=== PATIENT | female | born 1990 | race Caucasian/White ===

== ENCOUNTER 2017-05-08 14:15 | Emergency (ER) | payer OTHER ==
[~2017-05-08] VITALS: Ht 154.9 cm; Wt 86.2 kg
[~2017-05-08 14:15] MED LIST: ALLEGRA-D 12 H1 EAC1 PO; BIRTH CONTROL; CYMBALTA60 MG PO; LEVOTHYROXIN0.088 MG PO; METFORMIN HCL500 MG PO; NAPROSYN500 MG PO; NORCO 5-325 TA1 EACH PO; TRAMADOL 50 MG50 MG PO; YAZ 28 TABLET1 EACH PO
[2017-05-08] MEDS ORDERED: LUNESTA3 MG PO (14:32)
[2017-05-08] MEDS ORDERED: LEXAPRO20 MG PO (14:32)
[2017-05-08] MEDS ORDERED: NEURONTIN 300300 M1 PO (14:33)
[2017-05-08] MEDS ORDERED: TRAMADOL 50 MG50 MG PO (16:07)
[2017-05-08 16:27] VITALS: BP 117/90
== END 2017-05-08 16:27 | disposition home or self-care (01) ==
LOC: M.ERS 14:15
DX: M25.531 Pain in right wrist (principal); M53.3 Sacrococcygeal disorders, not elsewhere classified; E11.9 Type 2 diabetes mellitus without complications; E03.9 Hypothyroidism, unspecified; Z88.6 Allergy status to analgesic agent; Z88.1 Allergy status to other antibiotic agents

== ENCOUNTER 2017-06-10 09:03 | Emergency (ER) | payer OTHER ==
[~2017-06-10] VITALS: Ht 154.9 cm; Wt 86.2 kg
[~2017-06-10 09:03] MED LIST changes: +LEXAPRO20 MG PO; +LUNESTA3 MG PO; +NEURONTIN 300300 M1 PO
[2017-06-10] MEDS ORDERED: AMITRIPTYLINE H25 M2 PO (09:21)
[2017-06-10 09:57] LABS: ABSOLUTE EOSINOPHILS 0.2 thou/uL (0.0-0.7); ABSOLUTE LYMPHOCYTES 3.9 thou/uL (0.8-5.3); ABSOLUTE MONOCYTES 0.4 thou/uL (0.0-1.2); ABSOLUTE NEUTROPHILS 4.2 thou/uL (1.6-8.1); BASOPHILS 0.3 %; EOSINOPHILS 2.1 %; HEMATOCRIT 33.3 % (37.0-47.0); HEMOGLOBIN 11.4 gm/dL (12.0-15.0); LYMPHOCYTES 44.4 %; MCH 31.2 pg (26.0-34.0); MCHC 34.4 g/dL (28.0-37.0); MCV 90.8 fL (80.0-100.0); MONOCYTES 4.6 %; MPV 8.8 fl. (7.2-11.1); NUCLEATED RBCS 0 /100WBC; PLATELET COUNT* 188 thou/uL (150-400); POLYS 48.6 %; RBC 3.67 mil/uL (4.20-5.00); RDW-CV 12.6 % (10.5-14.5); WBC 8.7 thou/uL (4.0-11.0)
[2017-06-10 09:59] LABS: URINE BILIRUBIN NEGATIVE (Negative); URINE BLOOD NEGATIVE (Negative); URINE CLARITY CLEAR; URINE COLOR STRAW; URINE GLUCOSE-RANDOM NEGATIVE (Negative); URINE KETONES NEGATIVE (Negative); URINE LEUKOCYTES-REFLEX TRACE (Negative); URINE NITRITE-REFLEX NEGATIVE (Negative); URINE PROTEIN NEGATIVE (Negative); URINE SPECIFIC GRAVITY <= 1.005 (1.005-1.030); URINE UROBILINOGEN 0.2 E.U./dl (0.2-1.0)
[2017-06-10 10:02] LABS: ANION GAP 10 mmol/L (7-16); BUN 10 mg/dL (7-18); CALCIUM 8.3 mg/dL (8.5-10.1); CHLORIDE 108 mmol/L (98-107); CO2 26 mmol/L (21-32); CREATININE 0.8 mg/dL (0.6-1.3); GLUCOSE 87 mg/dL (70-99); POTASSIUM 3.5 mmol/L (3.5-5.1); SODIUM 144 mmol/L (136-145)
[2017-06-10 10:09] LABS: ALBUMIN 3.2 g/dL (3.4-5.0); ALKALINE PHOSPHATASE 58 U/L (46-116); LIPASE 70 U/L (73-393); SGOT 11 U/L (15-37); SGPT 19 U/L (30-65); TOTAL BILIRUBIN 0.2 mg/dL (<0.1-1.0); TOTAL PROTEIN 6.1 g/dL (6.4-8.2); TROPONIN-I LEVEL <0.06 ng/mL (<0.06)
[2017-06-10 10:09] LABS: SQUAMOUS 4-10 Moderate /LPF (0-3)
[2017-06-10 10:10] LABS: BACTERIA-REFLEX >30 Many /HPF (None Seen); CASTS None Seen /LPF (None Seen); CRYSTALS None Seen /LPF (None Seen); MUCUS 0-3 Light strn/LPF (None Seen); URINE RBC 0-2 Rare /HPF (0-2); URINE WBC-REFLEX 0-5 Rare /HPF (0-5)
[2017-06-10] MEDS ORDERED: HYDROCODON-ACE1 EAC7 PO (12:28)
[2017-06-10 12:37] VITALS: BP 112/80
== END 2017-06-10 12:38 | disposition home or self-care (01) ==
LOC: M.ERS 09:03
PROVIDERS: Emergency Medicine
DX: R10.2 Pelvic and perineal pain (principal); E03.9 Hypothyroidism, unspecified; Z90.89 Acquired absence of other organs; Z88.6 Allergy status to analgesic agent; Z88.1 Allergy status to other antibiotic agents

== ENCOUNTER 2017-06-26 17:45 | Emergency (ER) | payer OTHER ==
[~2017-06-26] VITALS: Ht 154.9 cm; Wt 86.2 kg
[~2017-06-26 17:45] MED LIST changes: +AMITRIPTYLINE H25 M2 PO; +HYDROCODON-ACE1 EAC7 PO
[2017-06-26] MEDS ORDERED: DEPAKOTE ER500 MG PO (18:19)
[2017-06-26 19:00] LABS: ABSOLUTE EOSINOPHILS 0.1 thou/uL (0.0-0.7); ABSOLUTE LYMPHOCYTES 2.1 thou/uL (0.8-5.3); ABSOLUTE MONOCYTES 0.4 thou/uL (0.0-1.2); ABSOLUTE NEUTROPHILS 2.9 thou/uL (1.6-8.1); BASOPHILS 0.7 %; EOSINOPHILS 2.1 %; HEMATOCRIT 37.3 % (37.0-47.0); HEMOGLOBIN 12.7 gm/dL (12.0-15.0); LYMPHOCYTES 37.8 %; MCH 31.3 pg (26.0-34.0); MCHC 33.9 g/dL (28.0-37.0); MCV 92.1 fL (80.0-100.0); MPV 8.8 fl. (7.2-11.1); NUCLEATED RBCS 0 /100WBC; PLATELET COUNT* 188 thou/uL (150-400); POLYS 52.4 %; RBC 4.05 mil/uL (4.20-5.00); RDW-CV 13.3 % (10.5-14.5); WBC 5.5 thou/uL (4.0-11.0)
[2017-06-26 19:08] LABS: CALCIUM 8.9 mg/dL (8.5-10.1); CREATININE 0.8 mg/dL (0.6-1.3); POTASSIUM 4.2 mmol/L (3.5-5.1)
[2017-06-26 19:13] LABS: ALBUMIN 3.5 g/dL (3.4-5.0); TOTAL BILIRUBIN 0.2 mg/dL (<0.1-1.0); TOTAL PROTEIN 6.7 g/dL (6.4-8.2)
[2017-06-26 19:40] LABS: URINE BILIRUBIN NEGATIVE (Negative); URINE BLOOD NEGATIVE (Negative); URINE CLARITY CLEAR; URINE COLOR YELLOW; URINE GLUCOSE-RANDOM NEGATIVE (Negative); URINE KETONES NEGATIVE (Negative); URINE LEUKOCYTES-REFLEX TRACE (Negative); URINE NITRITE-REFLEX NEGATIVE (Negative); URINE PROTEIN NEGATIVE (Negative); URINE UROBILINOGEN 0.2 E.U./dl (0.2-1.0)
[2017-06-26 19:47] LABS: BACTERIA-REFLEX None Seen /HPF (None Seen); CASTS None Seen /LPF (None Seen); CRYSTALS None Seen /LPF (None Seen); MUCUS 0-3 Light strn/LPF (None Seen); SQUAMOUS 4-10 Moderate /LPF (0-3); URINE RBC None Seen /HPF (0-2); URINE WBC-REFLEX 0-5 Rare /HPF (0-5)
[2017-06-26 19:48] LABS: AMP/METHAMP POSITIVE (Negative); BARBITURATES Negative (Negative); BENZODIAZEPINES POSITIVE (Negative); COCAINE Negative (Negative); METHADONE Negative (Negative); OPIATES Negative (Negative); PCP Negative (Negative); THC Negative (Negative)
[2017-06-26 19:57] VITALS: BP 103/71
== END 2017-06-26 19:59 | disposition home or self-care (01) ==
LOC: M.ERS 17:45
PROVIDERS: Physician Assistant
DX: R11.2 Nausea with vomiting, unspecified (principal); E03.9 Hypothyroidism, unspecified; Z88.8 Allergy status to other drugs, medicaments and biological substances

== ENCOUNTER 2017-10-12 12:29 | Emergency (ER) | payer OTHER ==
[~2017-10-12] VITALS: Ht 157.5 cm; Wt 86.2 kg
[~2017-10-12 12:29] MED LIST changes: +DEPAKOTE ER500 MG PO
[2017-10-12] MEDS ORDERED: PROZAC20 MG PO (12:36)
[2017-10-12] MEDS ORDERED: VISTARIL 25 MG25 M1 PO (12:38)
[2017-10-12 13:39] LABS: ABSOLUTE EOSINOPHILS 0.1 thou/uL (0.0-0.7); ABSOLUTE LYMPHOCYTES 1.7 thou/uL (0.8-5.3); ABSOLUTE MONOCYTES 0.3 thou/uL (0.0-1.2); BASOPHILS 0.4 %; EOSINOPHILS 1.4 %; HEMATOCRIT 36.5 % (37.0-47.0); LYMPHOCYTES 33.2 %; MCH 28.8 pg (26.0-34.0); MCHC 32.9 g/dL (28.0-37.0); MCV 87.7 fL (80.0-100.0); MONOCYTES 6.1 %; MPV 8.5 fl. (7.2-11.1); NUCLEATED RBCS 0 /100WBC; PLATELET COUNT* 197 thou/uL (150-400); POLYS 58.9 %; RBC 4.16 mil/uL (4.20-5.00); RDW-CV 13.5 % (10.5-14.5); WBC 5.1 thou/uL (4.0-11.0)
[2017-10-12 13:45] LABS: ANION GAP 4 mmol/L (7-16); BUN 10 mg/dL (7-18); CALCIUM 8.4 mg/dL (8.5-10.1); CHLORIDE 105 mmol/L (98-107); CO2 29 mmol/L (21-32); CREATININE 0.8 mg/dL (0.6-1.3); GLUCOSE 86 mg/dL (70-99); POTASSIUM 3.8 mmol/L (3.5-5.1); SODIUM 138 mmol/L (136-145)
[2017-10-12 14:05] LABS: ALBUMIN 3.8 g/dL (3.4-5.0); ALKALINE PHOSPHATASE 74 U/L (46-116); CK-MB MASS 0.6 ng/mL (<0.5-3.6); LIPASE 63 U/L (73-393); MAGNESIUM 1.7 mg/dL (1.8-2.4); NT-PRO BRAIN NAT PEPTIDE 176 pg/mL (<300); SGOT 16 U/L (15-37); SGPT 33 U/L (30-65); TOTAL BILIRUBIN 0.2 mg/dL (<0.1-1.0); TOTAL PROTEIN 6.5 g/dL (6.4-8.2); TROPONIN-I LEVEL <0.06 ng/mL (<0.06)
[2017-10-12 14:16] LABS: APTT 26.2 Seconds (25.0-31.3)
[2017-10-12] MEDS ORDERED: ACIPHEX 20 MG T20 MG PO (14:43)
[2017-10-12 15:10] VITALS: BP 108/73
--- NOTE | 2017-10-12 16:44 | EKG ---
[place] [id number] ELECTROCARDIOGRAM REPORT Name: CARIN PLASCENCIA Room: [facility]#: [id number] Admission: 10/12/17 Attend Phys: Discharge: 10/12/17 Date of : [birth year] Report #: [id number] THIS REPORT FOR: //name// [facility] ED Test Date: 2017-10-12 Test Time: 12:36:28 Pat Name: CARIN GAITANLEFTY Department: Room: Gender: F [employer]: : 1990 Requested By: Rivera López Order Number: [id number] MD: Keith Bowie Measurements Intervals [place] Rate: 80 P: 37 MA: 127 QRS: 38 QRSD: 84 T: 33 QT: 363 QTc: 419 Interpretive Statements Sinus rhythm Low voltage, precordial leads Baseline wander in lead(s) V1 No previous ECG available for comparison Electronically Signed On 10-12-2017 16:43:54 CDT by Keith Bowie [email or web address] <ELECTRONICALLY SIGNED> By: Keith Bowie MD, [facility] 10/12/17 1643 [id number] 1236 Keith Bowie MD, FAC /EPI
== END 2017-10-12 15:11 | disposition home or self-care (01) ==
LOC: M.ERS 12:29
PROVIDERS: Emergency Medicine
DX: R07.9 Chest pain, unspecified (principal); F41.9 Anxiety disorder, unspecified; K21.9 Gastro-esophageal reflux disease without esophagitis; E03.9 Hypothyroidism, unspecified; Z88.1 Allergy status to other antibiotic agents; Z88.8 Allergy status to other drugs, medicaments and biological substances

== ENCOUNTER 2018-11-19 08:53 | Emergency (ER) | payer OTHER ==
[~2018-11-19] VITALS: Ht 157.5 cm; Wt 86.2 kg
[~2018-11-19 08:53] MED LIST changes: +ACIPHEX 20 MG T20 MG PO; +PROZAC20 MG PO; +VISTARIL 25 MG25 M1 PO
[2018-11-19] MEDS ORDERED: CLONAZEPAM 0.50.5 M1 PO (09:08)
[2018-11-19] MEDS ORDERED: REMERON15 MG PO (09:09)
[2018-11-19 09:42] LABS: URINE BILIRUBIN NEGATIVE (Negative); URINE BLOOD 3+ (Negative); URINE CLARITY CLEAR; URINE COLOR YELLOW; URINE GLUCOSE-RANDOM NEGATIVE (Negative); URINE KETONES NEGATIVE (Negative); URINE LEUKOCYTES-REFLEX NEGATIVE (Negative); URINE NITRITE-REFLEX NEGATIVE (Negative); URINE PROTEIN TRACE (Negative); URINE SPECIFIC GRAVITY >= 1.030 (1.005-1.030); URINE UROBILINOGEN 0.2 E.U./dl (0.2-1.0)
[2018-11-19 09:51] LABS: SQUAMOUS >10 Many /LPF (0-3)
[2018-11-19 09:52] LABS: ABSOLUTE EOSINOPHILS 0.1 thou/uL (0.0-0.7); ABSOLUTE LYMPHOCYTES 1.9 thou/uL (0.8-5.3); ABSOLUTE MONOCYTES 0.3 thou/uL (0.0-1.2); ABSOLUTE NEUTROPHILS 2.9 thou/uL (1.6-8.1); BASOPHILS 0.6 %; EOSINOPHILS 1.6 %; HEMATOCRIT 36.1 % (37.0-47.0); HEMOGLOBIN 12.2 gm/dL (12.0-15.0); LYMPHOCYTES 36.6 %; MCHC 33.9 g/dL (28.0-37.0); MCV 88.5 fL (80.0-100.0); MONOCYTES 5.7 %; MPV 8.8 fl. (7.2-11.1); NUCLEATED RBCS 0 /100WBC; PLATELET COUNT* 166 thou/uL (150-400); POLYS 55.5 %; RBC 4.08 mil/uL (4.20-5.00); RDW-CV 13.2 % (10.5-14.5); WBC 5.2 thou/uL (4.0-11.0)
[2018-11-19 09:53] LABS: URINE WBC-REFLEX 0-5 Rare /HPF (0-5)
[2018-11-19 09:54] LABS: BACTERIA-REFLEX >30 Many /HPF (None Seen); CASTS None Seen /LPF (None Seen); CRYSTALS None Seen /LPF (None Seen); MUCUS >6 Heavy strn/LPF (None Seen)
[2018-11-19 10:08] LABS: CALCIUM 8.3 mg/dL (8.5-10.1); CREATININE 0.9 mg/dL (0.6-1.3); POTASSIUM 3.9 mmol/L (3.5-5.1)
[2018-11-19 10:13] LABS: ALBUMIN 3.5 g/dL (3.4-5.0); TOTAL BILIRUBIN 0.2 mg/dL (<0.1-1.0); TOTAL PROTEIN 6.3 g/dL (6.4-8.2)
[2018-11-19] MEDS ORDERED: NORCO 5-325 TA1 EAC1 PO (11:11)
[2018-11-19 11:32] VITALS: BP 100/70
== END 2018-11-19 11:35 | disposition home or self-care (01) ==
LOC: M.ERS 08:53
PROVIDERS: Emergency Medicine
DX: R10.2 Pelvic and perineal pain (principal); E03.9 Hypothyroidism, unspecified; Z98.890 Other specified postprocedural states; Z90.89 Acquired absence of other organs; N80.9 Endometriosis, unspecified; Z88.1 Allergy status to other antibiotic agents; Z88.6 Allergy status to analgesic agent

== ENCOUNTER 2019-07-24 19:08 | Emergency (ER) | payer OTHER ==
[~2019-07-24] VITALS: Ht 157.5 cm; Wt 82.1 kg
[~2019-07-24 19:08] MED LIST changes: +CLONAZEPAM 0.50.5 M1 PO; +NORCO 5-325 TA1 EAC1 PO; +REMERON15 MG PO
[2019-07-24] MEDS ORDERED: BIRHT CONTROL (19:25)
[2019-07-24] MEDS ORDERED: PHENTERMINE H37.5 MG PO (19:25)
[2019-07-24] MEDS ORDERED: VALIUM5 MG PO (19:26)
[2019-07-24] MEDS ORDERED: NORTRIPTYLINE H75 M2 PO (19:26)
[2019-07-24] MEDS ORDERED: TYLENOL WITH CO1 TA1 PO (20:11)
[2019-07-24] MEDS ORDERED: LIDODERM1 EACH TRANSDERM (20:12)
[2019-07-24 20:47] VITALS: BP 139/94
== END 2019-07-24 20:47 | disposition home or self-care (01) ==
LOC: M.ERS 19:08
DX: M25.551 Pain in right hip (principal); E03.9 Hypothyroidism, unspecified; N80.9 Endometriosis, unspecified; F41.9 Anxiety disorder, unspecified; F32.9 Major depressive disorder, single episode, unspecified; Z90.49 Acquired absence of other specified parts of digestive tract; Z88.1 Allergy status to other antibiotic agents; Z88.8 Allergy status to other drugs, medicaments and biological substances

== ENCOUNTER 2019-09-13 13:42 | Emergency (ER) | payer OTHER ==
[~2019-09-13] VITALS: Ht 157.5 cm; Wt 81.7 kg
[~2019-09-13 13:42] MED LIST changes: +BIRHT CONTROL; -LEVOTHYROXIN0.088 MG PO; +LIDODERM1 EACH TRANSDERM; +NORTRIPTYLINE H75 M2 PO; +PHENTERMINE H37.5 MG PO; +SYNTHROID100 MC1 PO; +TYLENOL WITH CO1 TA1 PO; +VALIUM5 MG PO
[2019-09-13] MEDS ORDERED: LEXAPRO20 MG PO (14:03)
[2019-09-13] MEDS ORDERED: TYLENOL WITH CO1 TA1 PO (15:26)
[2019-09-13 15:47] VITALS: BP 106/69
== END 2019-09-13 15:48 | disposition home or self-care (01) ==
LOC: M.ERS 13:42
DX: S90.111A Contusion of right great toe without damage to nail, initial encounter (principal); E03.9 Hypothyroidism, unspecified; N80.9 Endometriosis, unspecified; F41.9 Anxiety disorder, unspecified; F32.9 Major depressive disorder, single episode, unspecified; Z90.49 Acquired absence of other specified parts of digestive tract; Z88.1 Allergy status to other antibiotic agents; Z88.8 Allergy status to other drugs, medicaments and biological substances; W22.8XXA Striking against or struck by other objects, initial encounter; Y93.89 Activity, other specified; Y92.89 Other specified places as the place of occurrence of the external cause; Y99.8 Other external cause status